=== PATIENT | male | born 1985 | race Caucasian/White ===

== ENCOUNTER 2020-03-13 22:53 | Emergency (ER) | payer BC, SELFPAY ==
[2020-03-13 22:54] VITALS: BP 140/80; PULSE 85; RESP 16; TEMP 36.4; O2SAT 99; BMI 23.2
--- NOTE | 2020-03-13 23:12 | ED.VIS.GEN ---
History of Present Illness Chief Complaint: Eye Problem Informant: Patient Narrative: 34-year-old male presents with concern for foreign body of the right eye. Patient states he was in a meeting and rubbed his eye with a sleeve and felt like something was in his eye. He notes some redness to the lateral aspect of the eye. He notes a foreign body sensation. He notes no change in vision. He does not wear contacts or glasses. Past Medical History - Allergies and Home Meds Allergies/Adverse Reactions: Allergies amoxicillin [From Augmentin] Allergy (Verified 03/13/20 22:56) Hives clavulanic acid [From Augmentin] Allergy (Verified 03/13/20 22:56) Hives Primary Care Physician: Marcus Hsu MD [Primary Care Provider] - Past Medical History: None Surgical History: noncontributory Smoking Status: Current every day smoker Drugs: None Review of Systems General: Denies: Chills, Fever, Sweats Eyes: Reports: - - See history of present illness. Denies: Visual changes - bilaterally, Diplopia ENT: Denies: Rhinorrhea, Sore throat Cardiovascular: Denies: Chest pain, Palpitations Respiratory: Denies: Dyspnea, Cough, Dyspnea on exertion Gastrointestinal: Denies: Abdominal pain, Nausea, Vomiting, Diarrhea, Melena, Hematochezia Genitourinary: Denies: Dysuria, Hematuria, Frequency Musculoskeletal: Denies: Back pain, Extremity Pain Skin: Denies: Rash, Wounds Neurological: Denies: Headache, Weakness, Numbness Physical Exam Vital Signs/Narrative: Vital Signs Temp Pulse Resp BP Pulse Ox 03/13/20 22:54 97.5 F L 85 16 140/80 H 99 Inital Vital Signs reviewed: Yes General: Well nourished, Well developed, No Acute Distress Head: Normocephalic, Atraumatic Eyes: Perrl, EOMI, - - On fluorescein staining there is no corneal abrasion or Bryson sign. There is a small because subconjunctival hemorrhage to the lateral aspect of the eye. No foreign body seen on eversion of eyelids.. Negative for: Pale conjunctiva, Scleral icterus ENT: Moist mucous membranes, No rhinorrhea Neck: Supple, Nontender Cardiovascular: Regular rate, Regular rhythm, No murmurs Respiratory: No distress, CTA bilaterally, Chest nontender Abdomen: Soft, Nontender, Nondistended, Normal bowel sounds Back: Nontender, Normal Inspection Extremities: Nontender, No edema Skin: Normal color, No rash Neurological: Alert, Oriented x3, Cranial nerves II-XII grossly intact, Normal Strength, Normal Sensation Psychological: Normal affect, Normal Mood Diagnostic/Tx/Re-eval - Medical Decision Making As this appears to be a subconjunctival hemorrhage without corneal abrasion or foreign body I recommend supportive care return if worsening or concerns ED Disposition - Plan for ED Patient: Disposition: Home or Assisted Living Diagnosis: Subconjunctival hemorrhage of right eye Instructions: ED Subconjunctival Hemorrhage Referrals: Marcus Hsu MD [Primary Care Provider] - As Needed Lavon Godinez MD [STAFF PHYSICIAN] - (FOR EYE DOCTOR CONSULT IN 3 DAYS IF NOT IMPROVED )
[2020-03-13] MEDS: Fluorescein 1 MG STRIP 1 STRIP RIGHT EYE (23:38)
[2020-03-13] MEDS: Tetracaine 0.5% Ophthalmic Bottle 1 DRP RIGHT EYE (23:38)
== END 2020-03-13 23:39 | disposition home or self-care (01) ==
LOC: ED 23:34
PROVIDERS: Emergency Provider Emergency Medicine
DX: H11.31 Conjunctival hemorrhage, right eye (principal); F17.200 Nicotine dependence, unspecified, uncomplicated
CPT/HCPCS: 99283